=== PATIENT | male | born 1990 | race Caucasian/White ===

== ENCOUNTER → 2022-07-10 | Outpatient (CLI) | payer OTHER | LOC: M PLAIMG 11:45 | PROVIDERS: ATTEND Physician Assistant | DX: R06.00 Dyspnea, unspecified (principal) ==

== ENCOUNTER 2022-10-06 17:11 | Emergency (ER) | payer OTHER ==
[~2022-10-06] VITALS: Ht 180.3 cm; Wt 103.2 kg
[2022-10-06 21:42] LABS: HEMATOCRIT 41.5 % (42.0-52.0); HEMOGLOBIN 14.4 g/dl (13.5-17.5); MEAN CORPUSCULAR HEMOGLOBIN 29.6 pg (27.0-33.0); MEAN CORPUSCULAR HGB CONC 34.7 g/dl (32.0-36.5); MEAN CORPUSCULAR VOLUME 85.2 fl (80.0-96.0); PLATELET COUNT, AUTOMATED 160 10^3/uL (150-450); RED BLOOD COUNT 4.87 10^6/uL (4.30-6.10); WHITE BLOOD COUNT 4.4 10^3/uL (4.0-10.0)
[2022-10-06 22:03] LABS: CHLORIDE LEVEL 101 MMOL/L (98-107); POTASSIUM SERUM 3.1 MMOL/L (3.5-5.1); SODIUM LEVEL 138 MMOL/L (136-145)
[2022-10-06 22:05] LABS: ALBUMIN 4.2 G/DL (3.2-5.2); CARBON DIOXIDE LEVEL 27 MMOL/L (20-31)
[2022-10-06] MEDS ORDERED: ACETAMINOPHEN 500 MG TAB PO ONE (22:05)
[2022-10-06 22:09] LABS: BLOOD UREA NITROGEN 11 MG/DL (9-23); GLUCOSE, FASTING 101 MG/DL (60-100)
[2022-10-06 22:10] LABS: ALKALINE PHOSPHATASE 65 U/L (46-116)
[2022-10-06 22:11] LABS: BILIRUBIN,DIRECT 0.6 MG/DL (<0.4); GLOMERULAR FILTRATION RATE > 60.0 (>60)
[2022-10-06 22:12] LABS: ALT/SGPT 237 U/L (7.0-40); AST/SGOT 193 U/L (<34); BILIRUBIN,TOTAL 1.9 MG/DL (0.3-1.2); TOTAL PROTEIN 7.3 G/DL (5.7-8.2)
[2022-10-06 22:34] LABS: ATYPICAL LYMPH 4 % (0-5); LYMPHOCYTES 40 % (16-44); MONOCYTES 4 % (0-5); NEUTROPHILS 51 % (28-66); PLASMA CELL 1 % (0-0)
[2022-10-06 22:35] LABS: PLATELET ESTIMATE NORMAL (NORMAL)
[2022-10-07 00:10] VITALS: BP_DIAS 70
[2022-10-07 02:18] VITALS: BP_SYST 120
[2022-10-07 05:56] LABS: HEPATITIS B SURFACE ANTIGEN NEGATIVE (NEGATIVE)
[2022-10-07 06:16] LABS: HEPATITIS B CORE ANTIBODY IGM NEGATIVE (NEGATIVE); HEPATITIS C VIRUS ABY INDEX 0.1 INDEX (<0.8)
== END 2022-10-07 02:21 | disposition home or self-care (01) ==
LOC: M ED 17:11
DX: R31.9 Hematuria, unspecified (principal); R94.5 Abnormal results of liver function studies; M54.50 Low back pain, unspecified

== ENCOUNTER 2023-04-10 15:53 | Emergency (ER) | payer OTHER ==
[~2023-04-10] VITALS: Ht 180.3 cm; Wt 103.0 kg
[2023-04-10] MEDS ORDERED: KETOROLAC 30 MG/ML 1ML VIAL IV ONE (18:05)
[2023-04-10] MEDS ORDERED: ISOVUE-370 76% 100ML VIAL As Ordered ONE (18:31)
[2023-04-10 18:41] LABS: HEMATOCRIT 45.1 % (42.0-52.0); HEMOGLOBIN 15.6 g/dl (13.5-17.5); MEAN CORPUSCULAR HEMOGLOBIN 30.2 pg (27.0-33.0); MEAN CORPUSCULAR HGB CONC 34.6 g/dl (32.0-36.5); MEAN CORPUSCULAR VOLUME 87.2 fl (80.0-96.0); PLATELET COUNT, AUTOMATED 203 10^3/uL (150-450); RED BLOOD COUNT 5.17 10^6/uL (4.30-6.10); WHITE BLOOD COUNT 6.6 10^3/uL (4.0-10.0)
[2023-04-10] MEDS ORDERED: CYCL-707 PO ×2 (20:38→20:55)
[2023-04-10] MEDS ORDERED: CYCLOBENZAPRINE 5MG TABLET PO ONE (20:40)
[2023-04-10] MEDS ORDERED: IBUP80TA PO ×2 (20:41→20:55)
[2023-04-10 20:57] VITALS: BP 120/68; TEMP 97.8; O2SAT 99
== END 2023-04-10 20:59 | disposition home or self-care (01) ==
LOC: M ED 15:53
DX: M54.2 Cervicalgia (principal); M50.20 Other cervical disc displacement, unspecified cervical region; Z79.899 Other long term (current) drug therapy
CPT/HCPCS: 70491; 80047; 85027; 96374; 99283; J1885; Q9967

== ENCOUNTER → 2023-06-29 | Outpatient (CLI) | payer OTHER ==
[~2023-06-29] MED LIST: CYCL-707 PO; IBUP80TA PO; METHACHOLINE KIT INH ONE
== END ==
LOC: M CARPUL 07:49
PROVIDERS: ATTEND Physician Assistant
DX: R06.00 Dyspnea, unspecified (principal)
CPT/HCPCS: 94070; J7674